=== PATIENT | male | born 1965 | race Caucasian/White ===

== ENCOUNTER 2018-12-18 18:17 | Emergency (ER) | payer OTHER ==
[~2018-12-18] VITALS: Ht 180.3 cm; Wt 76.7 kg
[2018-12-18 18:28] VITALS: BP 132/68
[2018-12-18] MEDS ORDERED: ACETAMINOPHEN 325 MG TABLET PO ONE (19:00)
[2018-12-18] MEDS ORDERED: ACETAMINOPHEN ES 500 MG TABLET ONE (19:07)
== END 2018-12-18 19:57 | disposition home or self-care (01) ==
LOC: ER 18:18
DX: L03.012 Cellulitis of left finger (principal)
CPT/HCPCS: 73140-TC